=== PATIENT | female | born 1945 | race Caucasian/White ===

== ENCOUNTER 2020-12-07 12:31 | Outpatient (CLI) | payer MEDICAID ==
--- NOTE | 2020-12-07 15:23 | Cat Scan Report ---
CT ABDOMEN AND PELVIS WITHOUT IV CONTRAST INDICATION: RENAL CYST. Right-sided abdominal pain. COMPARISON: None available. TECHNIQUE: All CT scans at this facility use dose modulation, automated exposure control, iterative reconstructi on or weight based dosing, when appropriate, to reduce radiation dose to as low as reasonably achieva ble. FINDINGS: Lung Bases: There are mild atelectatic changes within the dependent lung bases. Skeletal System: No acute abnormality. ABDOMEN: Liver: No significant abnormality. Gallbladder: No significant abnormality. Bile Ducts: No significant abnormality. Pancreas: No significant abnormality. Spleen: No significant abnormality. Adrenals: There is prominent fat density in the left retroperitoneum which appears to be arising from the left adrenal. Right Kidney: Parapelvic cysts versus pelvocaliectasis are noted. No renal or ureteral stones are see n. At the upper pole cortex there is a 7 mm hyperdense lesion which may be a hyperdense cyst. Left Kidney: Absent. Upper GI tract: No significant abnormality. Lymph Nodes: No significant adenopathy. Aorta: No significant abnormality. Additional Findings: No significant abnormality. PELVIS: Colon: No acute abnormality. Urinary Bladder and Distal Ureters: No significant abnormality. Appendix: No significant abnormality. Lymph Nodes: No significant adenopathy. Additional Findings: None. IMPRESSION: 1. Within the limitations of non contrast technique, no acute process in the abdomen or pelvis. 2. No urolithiasis. 3. Parapelvic cyst versus pelvocaliectasis of the right kidney. 4. 5.6 cm left adrenal myelolipoma. Given its size, surgical consultation is recommended.. Signer Name: Dre Mao MD Signed: 12/07/2020 3:18 PM Workstation Name: [id number]
== END 2020-12-07 12:32 | disposition home or self-care (01) ==
LOC: CT 12:31
PROVIDERS: ATTEND Urology
DX: D17.9 Benign lipomatous neoplasm, unspecified (principal); Q61.00 Congenital renal cyst, unspecified
CPT/HCPCS: 74176

== ENCOUNTER 2021-11-19 13:34 | Outpatient (CLI) | payer MEDICAID ==
[2021-11-19 14:28] LABS: Blood Urea Nitrogen 12 mg/dL (7-17)
--- NOTE | 2021-11-19 17:13 | Magnetic Resonance Report ---
MRI BRAIN 11/19/2021 INDICATION / CLINICAL INFORMATION: H90.5 UNSPECIFIED SENSORINEURAL HEARING LOSS. TECHNIQUE: Multiplanar, multisequence MR images of the brain were obtained. COMPARISON: None available. FINDINGS: BRAIN / INTRACRANIAL CONTENTS: Unenhanced and enhanced MR images of the brain were obtained, with det mark views of the temporal bones included. Moderate patient motion artifact is present on these imag es, most notably on the postcontrast images. There is no evidence of acoustic neuroma. No abnormal mass or enhancement is seen within the region o f the internal auditory canals or cerebellopontine angles. Images of the brain demonstrate no evidence of acute abnormality. Ventricles and sulci are normal in size and shape for a patient of this age. There is no evidence of acute ischemic injury, demyelinatio n, hemorrhage, or mass. There are no abnormal extra-axial fluid collections. Postcontrast images demonstrate no abnormal contrast enhancement. EXTRACRANIAL: Unremarkable CRANIOCERVICAL JUNCTION: No significant abnormality. VASCULAR FLOW-VOIDS: No significant abnormality. IMPRESSION: No acute abnormality. No evidence of acoustic neuroma. Signer Name: Sergey Lucero MD Signed: 11/19/2021 5:08 PM Workstation Name: [id number]
== END 2021-11-19 13:35 | disposition home or self-care (01) ==
LOC: MRI 13:34
DX: H90.5 Unspecified sensorineural hearing loss (principal)
CPT/HCPCS: 36415; 70553; 82565; 84520; A9575